=== PATIENT | male | born 1990 | race Caucasian/White ===

== ENCOUNTER 2024-12-30 14:40 | Emergency (ER) | payer BC, SELFPAY ==
[2024-12-30 14:43] VITALS: BP 167/94; PULSE 92; TEMP 36.8; O2SAT 96; BMI 30.9
--- NOTE | 2024-12-30 14:48 | XRR_ITS ---
PROCEDURE INFORMATION: Exam: XR Left Wrist Exam date and time: 12/30/2024 2:50 PM Age: 34 years old Clinical indication: Pain; Wrist; Left TECHNIQUE: Imaging protocol: Radiologic exam of the left wrist. Views: 3 or more views. COMPARISON: No relevant prior studies available. FINDINGS: Bones/joints: On the frontal view, there is a subtle lucency in the mid scaphoid bone suspicious for a nondisplaced fracture. This is not seen on the remaining views. No other fracture or dislocation seen. Soft tissues: Prominent soft tissue swelling overlying the dorsal carpus. XR/XR wrist LT min 3V* [id number] IMPRESSION: 1. On the frontal view, there is a subtle lucency in the mid scaphoid bone concerning for a nondisplaced fracture. This is not seen on the remaining views. If clinically warranted, follow-up noncontrast CT could be obtained for definitive evaluation. 2. Prominent soft tissue swelling overlying the dorsal carpus.
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
--- NOTE | 2024-12-30 16:03 | PC.NURSE ---
Left thumb placed in universal thumb spica splint brace.
--- OUTSIDE RECORDS SUMMARY | 2024-12-30 17:17 | XMS_ITS | Clinical Summary ---
Author Organization [facility] Address [address] [place] [address] [address] [place] [address] Care Team Providers Care Gm Mobile Name Role Phone Abdirashid Ayers MD Primary Care Provider [phone] Allergies No known active allergies Medications sildenafil, antihypertensiv e, (REVATIO) 20 mg Tablet Take 2 Tablets (40 mg) by mouth 1 time daily as needed for Other (See Comment) (Erectile Dysfunction) . 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 Social History Tobacco Use Types Packs/Day Years Used Date Smoking Tobacco: Never Smokeless Tobacco: Never Alcohol Use Standard Drinks/Week Comments No 0 (1 standard drink = 0.6 oz pur e alcohol) Sex and Gender Information Value Date Recorded Sex Assigned at Not on file Legal Sex Male 6:52 AM CAR RENTAL CLERK Gender Identity Not on file Sexual Orientation Not on file Last Filed Vital Signs Vital Sign Reading Time Taken Comments Blood Pressure 124/82 04/13/2017 9:19 AM CAR RENTAL CLERK Pulse 74 04/13/2017 9:19 AM CAR RENTAL CLERK Temperature 36.9 C (98.4 F) 04/13/2017 9:19 AM CAR RENTAL CLERK Respiratory Rate 16 04/13/2017 9:19 AM CAR RENTAL CLERK Oxygen Saturation 98% 04/13/2017 9:19 AM CAR RENTAL CLERK Inhaled Oxygen Concentration - - Weight 109.3 kg (241 lb) 04/13/2017 9:19 AM CAR RENTAL CLERK Height 185.4 cm (6' 1 ) 04/13/2017 9:19 AM CAR RENTAL CLERK Body Mass Index 31.8 04/13/2017 9:19 AM CAR RENTAL CLERK Plan of Treatment Health Maintenance Due Date Last Done Comments Pre-Diabetes and Diabetes Screening 1988 DTAP/TDAP/TD VACCINES (1 - Tdap) 11/14/2007 HEPATITIS B VACCINES (1 of 3 - 19+ 3-dose series) 06/2007 HPV VACCINES (1 - 3-dose SCDM series) 11/14/2015 Preventative Visit- Commercial 03/12/2024 03/19/2017 INFLUENZA VACCINE (#1) 2024 Insurance GENERIC [employer] Care Teams Gm Mobile Relationship Specialty Start Date End Date Abdirashid Ayers MD [address] [phone] PCP - General Family Practice 04/04/17
--- OUTSIDE RECORDS SUMMARY | 2024-12-30 17:17 | XMS_ITS | Encounter Summary ---
Author Organization [facility] Address [address] [address] Phone Care Team Providers Care Sort Worker Name Role Phone Rachna Aranda [facility] Primary Care Provider Reason for Visit * Reason Onset Date Comments Med Refill 01/02/2023 Encounter Details Date Type Department Care Team (Late st Contact Info) Description 01/02/2023 Refill [facility] [address] [place] [address] Luciano Skinner MD [address] [place] [id number] Attention deficit hyperactivity disorder (ADHD), combined type Social History Tobacco Use Types Packs/Day Years Used Date Smoking Tobacco: Never Smokeless Tobacco: Never Alcohol Use Standard Drinks/Week Comments Yes 2 (1 standard drink = 0.6 oz pur e alcohol) AUDIT-C Answer Date Recorded Q1: How often do you have a drink containing alc ohol? 2-3 times a week 05/19/2020 Q2: How many drinks containi ng alcohol do you have on a typical day when you are drinking? 3 or 4 05/19/2020 Frequency of Binge Drinking Not on file 05/10 PHQ-2 Answer Date Recorded Patient Health Questionnaire-2 Score 0 10/17/2022 Sex and Gender Information Value Date Recorded Sex Assigned at Not on file Legal Sex Male 11:07 AM CDT Gender Identity Not on file Sexual Orientation Not on file Occupation Industry Job Start Date Job End Date [employer] Not on file Not on file Not on file documented as of this encounter Miscellaneous Notes * Telephone Encounter - Jaleesa Foster LPN - 01/02/2023 10:22 AM CDT Per chart last Rx written was 11/23/2022. This Rx does not show on PDMP, I called [facility] pharmacy and spoke with Candace she states the Rx written 11/23/22 they did received and is on hold. They will prepare for patient supervisor statement clerks. Patient notified via message left on voicemail documented in this encounter Plan of Treatment Not on file documented as of this encounter Visit Diagnoses Diagnosis Attention deficit hyperactivity disorder (ADHD), combined type documented in this encounter Care Teams Sort Worker Relationship Specialty Start Date End Date Rachna Aranda FNP [address] [place] [phone] PCP - General Family Medicine 05/17/20 documented as of this encounter
--- OUTSIDE RECORDS SUMMARY | 2024-12-30 17:17 | XMS_ITS | Clinical Summary ---
Author Organization [facility] Address [address] Parson: [place] [address] Care Team Providers Care Board Hammer Operator Name Role Phone Abdirashid Ayers MD Primary Care Provider [phone] Allergies No known active allergies Medications sildenafiL, pulm.hypertensi on, (REVATIO) 20 mg Tablet Take 2 Tablets [...] at Not on file Legal Sex Male 12:30 AM CARPENTRY INSTRUCTOR Gender Identity Not on file Sexual Orientation Not on file Last Filed Vital Signs Vital Sign Reading Time Taken Comments Blood Pressure 124/82 04/13/2017 9:19 AM CARPENTRY INSTRUCTOR Pulse 74 04/13/2017 9:19 AM CARPENTRY INSTRUCTOR Temperature 36.9 C (98.4 F) 04/13/2017 9:19 AM CARPENTRY INSTRUCTOR Respiratory Rate 16 04/13/2017 9:19 AM CARPENTRY INSTRUCTOR Oxygen Saturation - - Inhaled Oxygen Concentration - - Weight 109.3 kg (241 lb) 04/13/2017 9:19 AM CARPENTRY INSTRUCTOR Height 185.4 cm (6' 1 ) 04/13/2017 9:19 AM CARPENTRY INSTRUCTOR Body Mass Index 31.8 04/13/2017 9:19 AM CARPENTRY INSTRUCTOR Plan of Treatment Health Maintenance Due Date Last Done Comments Pre-Diabetes and Diabetes Screening 1988 DTAP/TDAP/TD VACCINES (1 - Tdap) 11/14/2007 HEPATITIS B VACCINES (1 of 3 - 19+ 3-dose series) 06/2007 HPV VACCINES (1 - 3-dose SCDM series) 11/14/2015 INFLUENZA VACCINE (#1) 2024 Care Teams Board Hammer Operator Relationship Specialty Start Date End Date Abdirashid Ayers MD [address] [phone] PCP - General Family Practice 04/04/17
--- OUTSIDE RECORDS SUMMARY | 2024-12-30 17:17 | XMS_ITS | Clinical Summary ---
Author Organization [facility] Address [address] [place] [address] Phone Care Team Providers Care Stope Miner Name Role Phone Rachna Aranda [facility] Primary Care Provider [phone] Allergies No known active allergies Medications metoprolol succinate XL (Toprol-XL) 25 mg 24 hr tabletIndication s:Primary hypertension,Tac hycardia Take 1 tablet (25 mg total) by mouth 1 (one) time each day. Do not crush or chew. 90 tablet 3 03/07/2024 5 Active sertraline (Zoloft) 100 mg tabletIndication s:Anxiety Take 1 tablet (100 mg total) by mouth 1 (one) time each day. 90 tablet 3 03/07/2024 5 Active amphetamine-dext roamphetamine (Adderall) 10 mg tablet Take 1 tablet (10 mg total) by mouth 2 (two) times a day. 60 tablet 05/20/2024 Active Active Problems No known active problems Immunizations Immunization Administration Dates Next Due Tdap 01/24/2022 Family History Relation Status Comments Father Alive Mother Alive Social History Tobacco Use Types Packs/Day Years Used Date Smoking Tobacco: Never Smokeless Tobacco: Never Tobacco Cessation:Counseling Given: Not Answered Alcohol Use Standard Drinks/Week Comments Yes 2 [...] Date Recorded Patient Health Questionnaire-2 Score 0 03/07/2024 [facility] - Mental Health Answer Date Recorde d Little interest or pleasure in doing things Not at all 03/07/2024 Feeling down, depressed, or hopeless Not at all 03/07/2024 Feeling of Stress Not on file 03/07/2024 Sex and Gender Information Value Date Recorded Sex Assigned at Not on file Legal Sex Male 11:07 AM CDT Gender Identity Not on file Sexual Orientation Not on file Occupation Industry Job Start Date Job End Date [employer] Not on file Not on file Not on file Last Filed Vital Signs Vital Sign Reading Time Taken Comments Blood Pressure 152/92 03/07/2024 11:00 AM LOADING INSPECTOR Pulse 106 03/07/2024 10:55 AM LOADING INSPECTOR Temperature 36.7 C (98 F) 03/07/2024 10:55 AM LOADING INSPECTOR Respiratory Rate 18 03/07/2024 10:55 AM LOADING INSPECTOR Oxygen Saturation 96% 03/07/2024 10:55 AM LOADING INSPECTOR Inhaled Oxygen Concentration - - Weight 106 kg (233 lb 6.4 oz) 03/07/2024 10:55 A M LOADING INSPECTOR Height 185.4 cm (6' 1 ) 03/07/2024 10:55 AM LOADING INSPECTOR Body Mass Index 30.79 03/07/2024 10:55 AM LOADING INSPECTOR Plan of Treatment Health Maintenance Due Date Last Done Comments Lipid Panel 1988 MMR Vaccines (1 of 1 - Standard series) 1989 Varicella Vaccines (1 of 2 - 13+ 2-dose series) 2001 Social Drivers of Health (SDoH) 2006 Hepatitis B Vaccines (1 of 3 - 19+ 3-dose series) 11/14/2007 HPV Vaccines (1 - 3-dose SCD M series) 11/14/2015 DTaP,Tdap,and Td Vaccines (2 - Td or Tdap) 02/21/2022 01/24/2022 COVID-19 Vaccine ( - 2023-2 5 season) 2024 Influenza Vaccine (#1) 2024 Creatinine Level 03/07/2025 03/07/2024, 01/24/2022 Potassium Level 03/07/2025 03/07/2024, 01/24/2022 Depression Screening 03/08/2025 03/07/2024 Pneumococcal Vaccine: 50+ Years (1 of 1 - PCV) 2038 Zoster Vaccines (1 of 2) 2038 RSV Vaccines (1 - 1-dose 75+ series) 11/14/2063 HIB Vaccines Aged Out No longer eligi ble based on patient's age to complete this topic Hepatitis A Vaccines Aged Out No long er eligible based on patient's age to complete this topic IPV Vaccines Aged Out No longer eligi ble based on patient's age to complete this topic Meningococcal B Vaccine Aged Out No l onger eligible based on patient's age to complete this topic Meningococcal Vaccine Aged Out No [place] eligible based on patient's age to complete this topic Pneumococcal Vaccine Aged Out No long er eligible based on patient's age to complete this topic Rotavirus Vaccines Aged Out No longer eligible based on patient's age to complete this topic Procedures Procedure Name Priority Date/Time Associated Diagnosis Comments COMPREHENSIVE METABOLIC PANEL Routine 03/07/2024 11:30 AM LOADING INSPECTOR Anxiety from Last 3 Months or Most Recently Relevant to Health Maintenance Results * (ABNORMAL) Comprehensive Metabolic Panel (03/07/2024 11:30 AM LOADING INSPECTOR) Glucose 73 70 - 100 mg/dL LAB CHEMISTRY METHOD 03/07/2024 6:26 PM LOADING INSPECTOR [facility] BUN 14 9 - 20 mg/dL LAB CHEMISTRY METHOD 03/07/2024 6:26 PM LOADING INSPECTOR [facility] Creatinine 1.12 0.66 - 1.25 mg/dl LAB CHEMISTRY METHOD 03/07/2024 6:26 PM LOADING INSPECTOR [facility] BUN/Creatinine Ratio 13 12 - 17 LAB CHEMISTRY METHOD 03/07/2024 6:26 PM LOADING INSPECTOR [facility] Sodium 136 135 - 145 mmol/L LAB CHEMISTRY METHOD 03/07/2024 6:26 PM LOADING INSPECTOR [facility] Potassium 4.1 3.6 - 5.0 mmol/L LAB CHEMISTRY METHOD 03/07/2024 6:26 PM LOADING INSPECTOR [facility] Chloride 106 101 - 111 mmol/L LAB CHEMISTRY METHOD 03/07/2024 6:26 PM LOADING INSPECTOR [facility] Total Carbon Dioxide 27 22 - 30 mmol/L LAB CHEMISTRY METHOD 03/07/2024 6:26 PM LOADING INSPECTOR [facility] Anion Gap 7(L) 9 - 17 mmol/L LAB CHEMISTRY METHOD 03/07/2024 6:26 PM LOADING INSPECTOR [facility] Calcium 9.7 8.2 - 10.2 mg/dL LAB CHEMISTRY METHOD 03/07/2024 6:26 PM LOADING INSPECTOR [facility] Total Protein, Serum 7.7 5.6 - 8.5 g/dL LAB CHEMISTRY METHOD 03/07/2024 6:26 PM LOADING INSPECTOR [facility] Albumin 4.2 3.5 - 5.2 g/dL LAB CHEMISTRY METHOD 03/07/2024 6:26 PM LOADING INSPECTOR [facility] GLOBULIN 3.5 2.1 - 3.8 g/dL LAB CHEMISTRY METHOD 03/07/2024 6:26 PM LOADING INSPECTOR [facility] A/G Ratio 1.2(L) 1.4 - 1.7 LAB CHEMISTRY METHOD 03/07/2024 6:26 PM [facility] Bilirubin, Total 0.8 0.1 - 1.3 mg/dL LAB CHEMISTRY METHOD 03/07/2024 6:26 PM LOADING INSPECTOR [facility] Alkaline Phosphatase 58 45 - 117 U/L LAB CHEMISTRY METHOD 03/07/2024 6:26 PM LOADING INSPECTOR [facility] ALT (SGPT) 65(H) 11 - 58 U/L LAB CHEMISTRY METHOD 03/07/2024 6:26 PM LOADING INSPECTOR [facility] AST (SGOT) 62(H) 9 - 55 U/L LAB CHEMISTRY METHOD 03/07/2024 6:26 PM LOADING INSPECTOR [facility] eGFR >60 >=60 mL/min/1. 73 m2 LAB CHEMISTRY METHOD 03/07/2024 6:26 PM LOADING INSPECTOR [facility] Blood Venous blood specimen / Unknown Venipuncture / Unknown 03/07/2024 11:30 AM LOADING INSPECTOR 03/07/2024 3:34 PM LOADING INSPECTOR Narrative [facility] - 03/07/2024 6:26 PM LOADING INSPECTOR Slight hemolysis us Rachna Aranda AUDIOVISUAL AIDS TECHNICIAN LAB BLOOD ORDERABLES Final Re sult [facility] [address] [phone] from Last 3 Months or Most Recently Relevant to Health Maintenance Insurance [place] [id number] [employer] Care Teams Stope Miner Relationship Specialty Start Date End Date Rachna Aranda FNP [address] [facility] [place] [phone] PCP - General Family Medicine 05/17/20
--- OUTSIDE RECORDS SUMMARY | 2024-12-30 17:17 | XMS_ITS | Encounter Summary ---
Author Organization [facility] Address [address] [address] Phone Care Team Providers Care Welfare Supervisor Name Role Phone Rachna Aranda ROSENDA Primary Care Provider [phone] Reason for Visit * Reason Onset Date Comments Med Refill 10/11/2022 Encounter Details Date Type Department Care Team (Late st Contact Info) Description 10/11/2022 Refill [facility] [address] [place] [address] Luciano Skinner MD [address] [place] [id number] Attention deficit hyperactivity disorder (ADHD), combined type [...] Answer Date Recorded Patient Health Questionnaire-2 Score 1 08/31/2022 Sex and Gender Information Value Date Recorded Sex Assigned at Not on file Legal Sex Male 11:07 AM CDT Gender Identity Not on file Sexual Orientation Not on file Occupation Industry Job Start Date Job End Date [employer] Not on file Not on file Not on file documented as of this encounter Miscellaneous Notes * Telephone Encounter - ROSENDA Bonner-BLANCA - 10/11/2022 1:04 PM CDT Nope see other message documented in this encounter Plan of Treatment Not on file documented as of this encounter Visit Diagnoses Diagnosis Attention deficit hyperactivity disorder (ADHD), combined type documented in this encounter Care Teams Welfare Supervisor Relationship Specialty Start Date End Date Rachna Aranda FNP [address] [place] [phone] PCP - General Family Medicine 05/17/20 documented as of this encounter
== END 2024-12-30 16:13 | disposition home or self-care (01) ==
PROVIDERS: Emergency Provider Emergency Medicine; PCP Nurse Practitioner Family
DX: S62.025A Nondisplaced fracture of middle third of navicular [scaphoid] bone of left wrist, initial encounter for closed fracture (principal); V20.49XA Other motorcycle driver injured in collision with pedestrian or animal in traffic accident, initial encounter
CPT/HCPCS: 73110; 99283

== ENCOUNTER 2025-02-17 13:34 | Outpatient (CLI) | payer BC, SELFPAY ==
[2025-02-17 14:36] LABS: Volume Semen 5.0 mL (2-5)
[2025-02-17 14:58] LABS: Viscosity Semen Droplets
[2025-02-17 14:59] LABS: Pathology Referral Yes; Sperm Count 0.0000 mill/mL (40-160)
== END 2025-02-17 13:35 | disposition home or self-care (01) ==
PROVIDERS: PCP Nurse Practitioner Family; Visit Provider Nurse Practitioner Family
DX: R86.9 Unspecified abnormal finding in specimens from male genital organs (principal)
CPT/HCPCS: 80503; 89320